=== PATIENT | female | born 1980 ===

== ENCOUNTER 2017-01-24 11:23 | Emergency (ER) | payer OTHER ==
[2017-01-24 13:57] VITALS: BP 150/108
--- NOTE | 2017-01-24 14:10 | UC ---
Skin Complaint HPI - HPI Summary HPI Summary: Patient had a tick on her hip, she is not sure when she noticed it, it was engorged and she was able to remove it this morning - History of Current Complaint Chief Complaint: [employer]kin Time Seen by Provider: 01/24/17 14:05 Stated Complaint: TICK Hx Obtained From: Patient Hx Last Menstrual Period: 01/03/17 Onset/Duration: Sudden Onset, Other - unknown Onset Severity: Mild Current Severity: None Character: Redness, Painful Aggravating Factor(s): Nothing Alleviating Factor(s): Nothing Related History: Insect Bite/Sting - Allergy/Home Medications Allergies/Adverse Reactions: Allergies Allergy/AdvReac Type Severity Reaction Status Date / Time No Known Allergies Allergy Verified 01/24/17 12:12 Home Medications: Home Medications Norgestimate-Ethinyl Estradiol [Sprintec 28 0.25-35 mg-Mcg] 1 tab PO DAILY 01/24 [History Confirmed 01/24/17] Review of Systems Constitutional: Negative Skin: Other - bite Eyes: Negative ENT: Negative Respiratory: Negative Cardiovascular: Negative Gastrointestinal: Negative Genitourinary: Negative Motor: Negative Neurovascular: Negative Musculoskeletal: Negative Neurological: Negative Psychological: Negative Is Patient Immunocompromised?: No All Other Systems Reviewed And Are Negative: Yes PMH/Surg Hx/FS Hx/Imm Hx Previously Healthy: Yes - Surgical History Surgical History: Yes Surgery Procedure, Year, and Place: breast reduction 2014 - Family History Known Family History: Positive: Hypertension - Social History Alcohol Use: Weekly Substance Use Type: None Smoking Status (MU): Never Smoked Tobacco Physical Exam Triage Information Reviewed: Yes Appearance: Well-Appearing, Well-Nourished, Pain Distress Vital Signs: Initial Vital Signs Temp 98 F 01/24/17 12:00 Pulse 85 01/24/17 12:00 Resp 16 01/24/17 12:00 BP 149/105 01/24/17 12:00 Pulse Ox 100 01/24/17 12:00 Vital Signs Reviewed: Yes Eye Exam: Normal ENT Exam: Normal Dental Exam: Normal Neck exam: Normal Respiratory Exam: Normal Respiratory: Positive: Chest non-tender, Lungs clear, Normal breath sounds Cardiovascular Exam: Normal Cardiovascular: Positive: RRR, No Murmur, Pulses Normal Abdominal Exam: Normal Abdomen Description: Positive: Nontender, No Organomegaly, Soft Bowel Sounds: Positive: Present Musculoskeletal Exam: Normal Neurological Exam: Normal Psychological Exam: Normal Skin: Positive: Other - small area of erythema on the left hip where tick was remved Course/Dx - Course Course Of Treatment: hx obtained, exam performed ,meds reviewed, given doxycylcyine - Differential Diagnoses - Skin Complaint Differential Diagnoses: Cellulitis, Tick Born Illness, Urticaria - Diagnoses Provider Diagnoses: tick bite Discharge - Discharge Plan Condition: Stable Disposition: HOME Prescriptions: DOXYcycline CAP(*) [DOXYcycline 100MG CAP(*)] 200 mg PO DAILY #2 cap Patient Education Materials: Tick Bite (ED) Referrals: No Primary Care Phys,NOPCP [Primary Care Provider] - Additional Instructions: 1. take the mdose of medication with your next meal. 2. FOllow up with any symptoms. 3. Follow up with your doctor for your Blood pressure
== END 2017-01-24 14:16 | disposition home or self-care (01) ==
LOC: UCCORT 11:23
DX: S70.262A Insect bite (nonvenomous), left hip, initial encounter (principal); W57.XXXA Bitten or stung by nonvenomous insect and other nonvenomous arthropods, initial encounter
CPT/HCPCS: 99212; G0463